=== PATIENT | female | born 1975 | race Two or more races ===

== ENCOUNTER 2017-09-06 07:31 | Emergency (ER) | payer OTHER ==
[~2017-09-06] VITALS: Ht 165.1 cm; Wt 83.9 kg
[2017-09-06] MEDS ORDERED: SODIUM CHLORIDE 0.9% 1,000 ML IV ONE ×2 (08:27→10:05)
[2017-09-06 08:29] LABS: Basophils # (auto) 0.1 uL; Basophils % (auto) 0.7 % (0.0-2.0); Eosinophils # (auto) 0 uL; Eosinophils % (auto) 0.5 % (0.0-7.0); Hemoglobin 13.8 g/dL (12.2-16.2); Lymphocytes % (auto) 22.6 % (10.0-50.0); Mean Corpuscular Hemoglobin 29.1 pg (28.0-32.0); Mean Corpuscular Hgb Conc. 34.5 g/dL (32.0-36.0); Mean Corpuscular Volume 84.3 fL (80.0-100.0); Mean Platelet Volume 8.9 fL (6.9-10.8); Monocytes # (auto) 0.4 uL; Monocytes % (auto) 4.2 % (0.0-12.0); Neutrophils # (auto) 6.5 uL; Platelet Count (auto) 300 10^3/uL (140-450); Red Cell Distribution Width 13.5 % (11.8-14.3)
[2017-09-06] MEDS ORDERED: ASPirin 81 mg TAB PO ONE (08:30)
[2017-09-06] MEDS ORDERED: DILTIAZEM HCL 120MG ER CAP PO ONE (08:30)
[2017-09-06 08:52] LABS: Albumin 3.7 g/dL (3.4-5.0); Anion Gap 12 (5-15); Aspartate Aminotransferase 112 U/L (15-37); BUN/Creatinine Ratio 8.3; Blood Urea Nitrogen 6 mg/dL (7-18); Calcium 8.8 mg/dL (8.5-10.1); Carbon Dioxide 23 mmol/L (21-32); Chloride 98 mmol/L (98-107); GFR African American 115 mL/min; GFR Non-African American 95 mL/min; Glucose 326 mg/dL (74-106); Magnesium 1.6 mg/dL (1.6-2.6); Sodium 133 mmol/L (136-145)
[2017-09-06 08:56] LABS: Alkaline Phosphatase 134 U/L (45-117); Bilirubin, Total 0.5 mg/dL (0.2-1.0); Total Protein 8.8 g/dL (6.4-8.2)
[2017-09-06 09:03] LABS: B-Type Natriuretic Peptide 17.57 pg/mL (0-100)
[2017-09-06 09:12] LABS: Temperature: 22.8 C (20.0-25.0)
[2017-09-06 09:16] LABS: Urine RBC None Seen /hpf (0 - 4)
[2017-09-06 09:25] LABS: Urine Bilirubin Negative (Negative); Urine Blood 2+ /uL (Negative); Urine Color Yellow (Yellow); Urine Glucose 4+ mg/dL (Normal); Urine Ketone 1+ (Negative); Urine Mucus FEW (None Seen); Urine Nitrite Negative (Negative); Urine Squamous Epithelial Cell FEW /hpf (<5); Urine Urobilinogen Normal (Negative); Urine pH 6.5 (5.0-8.0)
[2017-09-06 12:25] VITALS: BP 142/93
== END 2017-09-06 12:31 | disposition home or self-care (01) ==
LOC: EDBD 07:31 → ER 07:31
DX: I47.1 Supraventricular tachycardia (principal); E11.65 Type 2 diabetes mellitus with hyperglycemia; R94.5 Abnormal results of liver function studies
CPT/HCPCS: 36415; 71020; 80053; 81001; 82962; 83036; 83735; 83880; 84443; 84484; 84702; 85025; 93005; 94761; 96360; 96361; 99285; J7030